=== PATIENT | female | born 1980 | race Caucasian/White ===

== ENCOUNTER 2017-02-21 21:08 | Emergency (ER) | payer OTHER ==
[2017-02-21] MEDS ORDERED: LIDOCAINE 5% PATCH ONE (23:23)
[2017-02-21] MEDS ORDERED: METHOCARBAMOL 750 MG TABLET ONE (23:23)
[2017-02-22 00:10] LABS: HCG,QUALITATIVE URINE NEGATIVE
[2017-02-22] MEDS ORDERED: IBUPROFEN 600 MG TABLET ONE (00:33)
--- NOTE | 2017-02-22 08:08 | RAD ---
HISTORY: Patient fell while on the stairs. Worsening pain. Initially evaluated at outside institution. COMPARISON: None Findings: AP and lateral views of the lumbar spine with AP spot film of the lumbo-sacral junction are obtained. The development and bony structures are normal. There is no dislocation or destructive lesion. Bilateral pars defects are noted at the lumbosacral junction with slight grade 1 anterolisthesis of L5 on S1. These are likely more chronic in nature than acute. No other fracture or dislocation. The disk spaces and vertebral body heights are well-preserved. The sacrum and sacroiliac joints are normal. IMPRESSION: Bilateral pars defects with grade 1 anterolisthesis of L5 on S1. While pars defects tend to be a chronic finding, could be acute. No other fracture or dislocation. HISTORY: Patient fell. Worsening pain. Prior evaluation at outside institution. COMPARISON: None Findings: AP and lateral views of the thoracic spine are obtained. Lateral swimmer's view is also obtained at this time. There is no fracture or dislocation. Sagittal alignment is intact. The vertebral bodies and posterior elements are unremarkable. The alignment, discs, and discovertebral relationships are normal. Limited evaluation of the chest is unremarkable. Impression: Normal thoracic spine.
== END 2017-02-22 00:42 | disposition home or self-care (01) ==
LOC: ED 21:08
DX: M54.5 Low back pain (principal); M62.830 Muscle spasm of back; W10.9XXA Fall (on) (from) unspecified stairs and steps, initial encounter; J45.909 Unspecified asthma, uncomplicated; E11.9 Type 2 diabetes mellitus without complications; G40.409 Other generalized epilepsy and epileptic syndromes, not intractable, without status epilepticus; Z79.84 Long term (current) use of oral hypoglycemic drugs; Z79.82 Long term (current) use of aspirin; Z79.4 Long term (current) use of insulin; Z79.899 Other long term (current) drug therapy; Z88.8 Allergy status to other drugs, medicaments and biological substances; Z91.018 Allergy to other foods